=== PATIENT | male | born 1950 | race African-American/Black ===

== ENCOUNTER 2018-03-31 14:29 | Emergency (ER) | payer MEDICAID, MEDICARE ==
[~2018-03-31] VITALS: Ht 170.2 cm; Wt 104.0 kg
[2018-03-31] MEDS ORDERED: SILVER SULFADIAZINE 1% CREAM 25GM TOP ONE (15:00)
[2018-03-31] MEDS ORDERED: ACETAMINOPHEN 325MG TABLET PO ONE (15:15)
[2018-03-31] MEDS ORDERED: HYDRALAZINE HCL 100MG TABLET PO ONE (15:45)
[2018-03-31 17:26] VITALS: BP 184/92
== END 2018-03-31 17:30 | disposition home or self-care (01) ==
LOC: ER 14:29
DX: T21.22XA Burn of second degree of abdominal wall, initial encounter (principal); T79.9XXA Unspecified early complication of trauma, initial encounter; E11.9 Type 2 diabetes mellitus without complications; E11.22 Type 2 diabetes mellitus with diabetic chronic kidney disease; I13.11 Hypertensive heart and chronic kidney disease without heart failure, with stage 5 chronic kidney disease, or end stage renal disease; N18.6 End stage renal disease; I51.9 Heart disease, unspecified; Z99.2 Dependence on renal dialysis
CPT/HCPCS: 16020; 99284